=== PATIENT | male | born 1990 | race Hispanic/Latino ===

== ENCOUNTER 2018-04-06 10:40 | Inpatient (IN) | payer MEDICARE, MEDICAID ==
[~2018-04-06 10:40] MED LIST: ISOVUE-370 76%-LOCM 1 ML ONE
--- NOTE | 2018-04-06 12:48 | RAD ---
PORTABLE CHEST: HISTORY: Trauma with chest injury. FINDINGS: Lung solis are clear. Cardiomediastinum appears normal. The osseous structures appear intact. IMPRESSION: No acute abnormality identified. POS: [facility]
[2018-04-06 13:21] LABS: #Lymphocytes 0.4 thou/uL (1.20-3.40); #Monocytes 0.4 thou/uL (0.11-0.59); #Neutrophils 10.4 thou/uL (1.40-6.50); %Lymphocytes 3.3 % (21.0-51.0); %Monocytes 3.8 % (0.0-10.0); %Neutrophils 92.9 % (42.0-75.0); Hemoglobin 14.7 g/dL (14.0-18.0); Mean Corpuscular HGB CONC 35.7 g/dL (32.0-36.0); Mean Corpuscular Hemoglobin 28.9 pg (27.0-31.0); Mean Corpuscular Volume 80.9 fL (78.0-98.0); Mean Platelet Volume 6.6 fL (7.4-10.4); Platelet Count 259 thou/uL (130-400); RBC Distribution Width 11.2 % (11.5-14.5); White Blood Cell (WBC) Count 11.2 thou/uL (4.8-10.8)
[2018-04-06 13:43] LABS: ALT (SGPT) 280 U/L (8-55); AST (SGOT) 500 U/L (5-34); Albumin 4.9 g/dL (3.5-5.0); Alkaline Phosphatase 190 U/L (40-150); Anion Gap 16 mmol/L (10-20); BUN (Urea Nitrogen) 13 mg/dL (8.9-20.6); Bilirubin, Total 2.9 mg/dL (0.2-1.2); Calc. Creatinine Clearance 0 mL/min (70-130); Carbon Dioxide 22 mmol/L (22-29); Chloride 101 mmol/L (98-107); Estimated GFR-MDRD Greater than 90; Globulin 3.3 g/dL (2.4-3.5); Glucose 126 mg/dL (70-105); Lipase Less than 4 U/L (8-78); Potassium 3.5 mmol/L (3.5-5.1); Protein, Total 8.2 g/dL (6.0-8.3); Sodium 135 mmol/L (136-145)
[2018-04-06] MEDS ORDERED: Morphine 2 MG/ML SYRINGE ONE ×2 (14:15→18:22)
[2018-04-06] MEDS ORDERED: Ondansetron PF 4 MG/2 ML Vial ONE (14:15)
[2018-04-06 14:17] LABS: Acetaminophen Less than 6.0 mcg/mL (10.0-30.0); Alcohol Less than 10 mg/dL (Less than 10); Salicylate Less than 8.0 mg/dL (15.0-30.0)
--- NOTE | 2018-04-06 15:34 | CT ---
CT ABDOMEN AND PELVIS WITH CONTRAST: HISTORY: Right-sided pain. Injury 1 week ago. COMPARISON: None. FINDINGS: Lung bases are clear. No pericardial effusion. There is small layering fluid in the subhepatic space. There is dilatation of the gallbladder. The appendix is visualized and is normal. There are no dilated loops of large or small bowel. There is small volume perihepatic fluid extendin g along the lateral margin of the liver. There is small layering fluid surrounding the right portal vein and the ainsley hepatis. Rib shadowing artifact limits evaluation for small peripheral contusion or laceration, although no he patic laceration is definitively identified. No evidence for a renal laceration. The adrenal gland is unremarkable. The aortoiliac contour is within normal limits. Spleen is unremarkable. No displaced visualized right-sided rib fracture. The lumbar transverse processes are intact. The visualized skeleton is intact. IMPRESSION: 1. Mild right perihepatic and subhepatic fluid without definite hepatic laceration may be sequelae o f a recent contusion. No displaced right-sided rib fracture. 2. Mild distention of the gallbladder. Recommend correlation with liver function tests. 3. Small layering fluid in the ainsley hepatis and surrounding the right portal vein may be sequelae o f recent hepatic contusion. There is also trace fluid along the right paracolic gutter. 4. Intact appendix. 5. No evidence of splenic, pancreatic, nor renal contusions or lacerations. POS: [facility]
--- NOTE | 2018-04-06 16:12 | ULT ---
ULTRASOUND ABDOMEN LIMITED: (RIGHT UPPER QUADRANT) 04/06/2018 HISTORY: Right upper quadrant abdominal pain and nausea in a 27-year-old male. FINDINGS: Gallbladder: Multiple tiny gallstones, on the order of 1 or 2 mm in size each, mobile. Distended ray men. Wall thickness within normal limits, 2 mm. No pericholecystic edema. Small amount of sludge. Common duct: 5 mm. Liver: Normal size and echogenicity. Pancreas: Completely obscured by shadowing from bowel gas. Right kidney: No hydronephrosis. IMPRESSION: Positive for cholelithiasis within a distended gallbladder. INEZ Lynn POS: [facility]
[2018-04-06] MEDS ORDERED: Senokot S 8.6-50 MG TAB PO PRN (17:47)
[2018-04-06] MEDS ORDERED: Promethazine HCl 25 MG/ML VIAL IM/IV PRN (17:51)
--- NOTE | 2018-04-06 18:20 | HP ---
PRIMARY CARE PROVIDER: None. CHIEF COMPLAINT: Chest pain. HISTORY OF PRESENT ILLNESS: Mr. Anguiano is a pleasant 27-year-old gentleman, who was seen at [facility] on 04/06/2018. He is able to provide some history. Collateral history was also obtained from his mother by the bedside, discussion with the emergency room physician and re view of medical records. Mr. Martínez reportedly had abdominal pain one month ago and it resolved. Last 2 days, he has not be en eating much. He was in a bad mood, according to his mother. He felt warm to touch at home. He s tarted having nausea and vomiting last night, he had the symptoms today morning as well. He also rep orts that he has been having pain over the right lower chest, sharp, 8/10 at its worst and nonradiati ng. He cannot recall any aggravating or relieving factors. He reportedly fell twice in the rain one week ago. According to his mother, he also lost a lot of weight over the last 6 months, maybe 50-70 pounds. REVIEW OF SYSTEMS: All other systems reviewed and found to be negative. PAST MEDICAL HISTORY: Hypertension, pancreatitis. PAST SURGICAL HISTORY: None. PSYCHIATRIC HISTORY: Anxiety, bipolar disorder, depression, schizophrenia. SOCIAL HISTORY: Patient drinks alcohol occasionally. He uses cocaine, marijuana, and amphetamines. He smokes 1 pack of cigarettes a day. FAMILY HISTORY: No family history of premature coronary artery disease. ALLERGIES: PENICILLIN. CURRENT MEDICATIONS: Haldol, Zoloft 50 mg daily, Seroquel 100 mg at bedtime and hydroxyzine 50 mg 3 times a day. PHYSICAL EXAMINATION: GENERAL: On examination, Mr. Anguiano is awake and alert, not in acute distress. VITAL SIGNS: Blood pressure is 124/89, pulse 102, respiratory rate 20, and oxygen saturation 98% on room air. T-max in the emergency room is 100.2 degrees Fahrenheit. EYES: He has scleral icterus, no conjunctival pallor. ENT: Dry mucosal membranes, no oropharyngeal erythema or exudates. NECK: Supple, nontender. Trachea is midline. RESPIRATORY: Accessory muscles of breathing are not active. Chest wall movements are symmetric bila terally. LUNGS: Clear to auscultation, without wheeze, rhonchi or crepitations. CARDIOVASCULAR: S1 and S2 are heard, regular. Peripheral pulses palpable. No carotid bruit, no per icardial rub. ABDOMEN: Mild right upper quadrant tenderness, no guarding or rigidity, Riso sign is negative, bow el sounds are heard, no hepatomegaly, no splenomegaly. MUSCULOSKELETAL: Power is 5/5 in all 4 extremities. SKIN: No rashes or subcutaneous nodules. LYMPHATIC: No cervical lymphadenopathy. PSYCHIATRIC: Normal mood, normal affect, patient is oriented to person and place, not to time. IMAGING DATA AND LABORATORY DATA: Mr. Anguiano's labs and investigations were reviewed. He had emmanuel st x-ray, which did not show any pulmonary infiltrates. He also had CT scan of the abdomen and pelvi s, which showed mild right perihepatic and subhepatic fluid without definite hepatic laceration, may be sequelae of contusion. There is no displaced right-sided rib fracture. He had mild distention of the gallbladder. He had small layering fluid in the ainsley hepatis and surrounding the right portal vein, may be sequelae of recent hepatic contusion. He also has trace fluid along the right paracolic gutter. The appendix is intact. No evidence of splenic, pancreatic or renal contusions or lacerati ons. He had abdominal ultrasound, which showed cholelithiasis within a distended gallbladder. Commo n bile duct was 5 mm. He has leukocytosis with 11,200 white cells, of which 92.9% are neutrophils, n ormal hemoglobin, normal platelet count, decreased sodium of 135, lipase less than 4, normal creatini ne, normal lactic acid, elevated total bilirubin of 2.9, elevated AST of 500, elevated ALT of 280 and elevated alkaline phosphatase of 190. ASSESSMENT AND PLAN: Mr. Anguiano is a pleasant 27-year-old gentleman, who was seen at [facility] on 04/06/2018. His problem list includes: 1. Sepsis: Mr. Anguiano is presenting with sepsis, most likely source of infection in the biliary tree. Given his allergies, he has been started on levofloxacin and metronidazole, which I will ten nue. We will await blood cultures. 2. Abnormal liver function tests: Differential is wild, includes obstruction from gallstones versus infection in the biliary tree versus other etiologies. We will consult GI Service for opinion and h elp with management. We will recheck LFTs. 3. Tobacco abuse: Patient has been counseled regarding tobacco cessation, we will start patient on nicotine replacement therapy. 4. Polysubstance abuse: We will check urine drug screen. The patient has been counseled regarding cessation of recreational drugs. LEVEL OF RISK: Moderate. LEVEL OF COMPLEXITY: Moderate.
[2018-04-06 20:10] VITALS: BMI 26.5
[2018-04-06] MEDS: Sodium Chloride 0.9% 1,000 ML IV SCH (20:40)
[2018-04-06] MEDS: metroNIDAZOLE 500 MG in Premix Bag 1 BAG IVPB SCH (20:40)
[2018-04-06] MEDS: Morphine 2 MG/ML SYRINGE SLOW IVP PRN (20:40)
[2018-04-06] MEDS: Nicotine 21 MG PATCH TD SCH (21:55)
[2018-04-07] MEDS: Morphine 2 MG/ML SYRINGE SLOW IVP PRN ×4 (00:49→17:54)
[2018-04-07] MEDS: Sodium Chloride 0.9% 1,000 ML IV SCH ×3 (05:01→20:55)
[2018-04-07 05:56] LABS: #Lymphocytes 0.7 thou/uL (1.20-3.40); #Monocytes 0.6 thou/uL (0.11-0.59); #Neutrophils 10.9 thou/uL (1.40-6.50); %Basophils 0.2 % (0.0-1.0); %Eosinophils 0.4 % (0.0-10.0); %Lymphocytes 5.8 % (21.0-51.0); %Monocytes 4.7 % (0.0-10.0); Hemoglobin 12.3 g/dL (14.0-18.0); Mean Corpuscular HGB CONC 34.9 g/dL (32.0-36.0); Mean Corpuscular Hemoglobin 28.5 pg (27.0-31.0); Mean Corpuscular Volume 81.7 fL (78.0-98.0); Mean Platelet Volume 6.9 fL (7.4-10.4); Platelet Count 201 thou/uL (130-400); RBC Distribution Width 11.2 % (11.5-14.5); Red Blood Cell (RBC) Count 4.31 mill/uL (4.70-6.10); White Blood Cell (WBC) Count 12.3 thou/uL (4.8-10.8)
[2018-04-07 06:19] LABS: ALT (SGPT) 194 U/L (8-55); AST (SGOT) 139 U/L (5-34); Albumin 3.8 g/dL (3.5-5.0); Alkaline Phosphatase 178 U/L (40-150); Anion Gap 12 mmol/L (10-20); BUN (Urea Nitrogen) 10 mg/dL (8.9-20.6); Bilirubin, Total 3.8 mg/dL (0.2-1.2); Calc. Creatinine Clearance 132 mL/min (70-130); Calcium 8.9 mg/dL (7.8-10.44); Carbon Dioxide 24 mmol/L (22-29); Chloride 103 mmol/L (98-107); Estimated GFR-MDRD Greater than 90; Globulin 2.6 g/dL (2.4-3.5); Glucose 93 mg/dL (70-105); Potassium 3.4 mmol/L (3.5-5.1); Protein, Total 6.4 g/dL (6.0-8.3); Sodium 136 mmol/L (136-145)
[2018-04-07] MEDS: metroNIDAZOLE 500 MG in Premix Bag 1 BAG IVPB SCH ×3 (06:20→20:45)
[2018-04-07] MEDS: Enoxaparin Sodium 40 MG/0.4 ML SYRINGE SC SCH (08:11)
[2018-04-07] MEDS ORDERED: Potassium Chloride 20 MEQ TAB PO SCH (11:30)
[2018-04-07] MEDS ORDERED: Acetaminophen 500 MG TAB PO PRN (13:46)
[2018-04-07] MEDS: hydrOXYzine 25 MG TAB PO SCH ×2 (16:53→20:47)
--- NOTE | 2018-04-07 17:23 | PRG ---
DATE OF SERVICE: 04/07/2018 SUBJECTIVE: The patient is seen and examined at bedside. He is still complaining about right upper quadrant pain of the abdomen. No nausea, no vomiting, no diarrhea. OBJECTIVE: VITAL SIGNS: Blood pressure is 118/75, pulse is 110, temperature is 98.7, respirations 16, O2 satura tion is 93 on room air. HEAD: Atraumatic, normocephalic. GENERAL: He is somewhat agitated during my visit. He finally agreed to have MRCP done, ordered by Jihan HEATHENT: His head is atraumatic, normocephalic. Eyes are PERRLA. Sclerae are nonicteric. Oral mucos a is moist. NECK: Supple. LUNGS: Clear. HEART: S1, S2 normal. No S3, no S4, no murmur. ABDOMEN: Soft, although somewhat tender in the right upper quadrant. Liver is slightly enlarged, ap proximately 2 cm below the right costal margin. Bowel sounds are present. No organomegaly. EXTREMITIES: No clubbing, cyanosis, or edema. NEUROLOGIC: He is able to answer all my questions. He follows my commands. He moves his all 4 extr emities. LABORATORY DATA: White count of 12.3, hemoglobin of 12.3, hematocrit is 35.2, platelet count is 201, 000. Chemistry showed sodium of 136, potassium 3.4, chloride 103, CO2 of 24, BUN 12, creatinine 0.77 , total bilirubin 3.8, AST 139, ALT 194, and alkaline phosphatase 178,000. Microbiology: Blood cult ures x2 negative. IMPRESSION: 1. Elevated liver function test with abdominal pain and some evidence of a biliary tree obstruction. The patient finally agreed to have MRCP done. 2. Schizophrenia. We will restart his home meds. 3. Depression. PLAN: As mentioned above, additional testing on his abdomen, and based on the findings, further eval uation/treatment. For now, we will continue his metronidazole and levofloxacin; and start him on his hydroxyzine, Seroquel, and Zoloft.
--- NOTE | 2018-04-07 18:50 | MRI ---
ABDOMEN MRI WITHOUT CONTRAST: 04/07/18 HISTORY: Evaluate for possible choledocholithiasis. COMPARISON: None. TECHNIQUE: Noncontrast abdomen MRI is performed with multisequential, multiplanar imaging. FINDINGS: There is evidence of perihepatic fluid. Gallbladder is distended. There is evidence of gallstones. Th ere is edema and fluid in the gallbladder fossa. There is concern for possible cholecystitis. Spleen, pancreas, and kidneys have appropriate signal intensity. Unremarkable gallbladder. Small bilateral pleural effusion may be present. Bilateral lower lobe opacification likely due to ate lectasis. MRCP demonstrates appropriate signal in the intra and extrahepatic biliary system. There is no defini te evidence of a choledocholith. There is a linear filling defect in the distal common bile duct, not ed on the source images as well as the MIP images which is of uncertain significance. There is no ass ociated obstruction. Gallbladder is distended and multiple filling defects are noted compatible with gallstones. IMPRESSION: Cholecystitis. General surgical consultation is recommended. Results of the study discussed with Shruthi, patient's nurse, 04/07/18 at 4:38 p.m. Code CR POS: [facility]
[2018-04-07] MEDS: Nicotine 21 MG PATCH TD SCH (20:54)
--- NOTE | 2018-04-07 21:09 | CON ---
DATE OF CONSULTATION: 04/07/2018 REASON FOR CONSULTATION: Elevated LFTs, possible choledocholithiasis. CONSULTING PHYSICIAN: Dr. Petey Jimenez. HISTORY OF PRESENT ILLNESS: The patient is a 27-year-old male with past medical history of hypertens ion, pancreatitis, anxiety, bipolar disorder, and schizophrenia who is presenting with complaints of abdominal pain. He states that he was in his usual state of health until approximately 1 week ago wh en he began to experience increase right upper quadrant abdominal pain. The pain was characterized a s a pressure type sensation, was intermittent, nonradiating and would reach a severity of 8/10. Ther e was no clear exacerbating factors and only better with pain medications during this admission. He also endorses the loss of approximately 50-60 pounds over the last 6 months, but with relatively unkn own etiology and no change in dietary habits during that time. Of note, both the patient and his mot her also endorse an injury approximately 1 week ago with the patient slipped and fell and either fell on bricks or fell on the car with injury to the right side, but per patient, it sounds as though he felt on outstretched hands rather than injury to the right lower ribs or the right abdomen as well. With the patient's admission to the hospital and administration of pain medications, he now endorses no pain in the right upper quadrant and currently denies any nausea, vomiting, fevers, chills, abdomi nal pain, GI bleeding, dysphagia, odynophagia, diarrhea or constipation. Of note, upon talking with the patient's mother, it is unclear who has medical power of divorce attorney for this patient with the mother not making healthcare decisions for this patient; however, it sounds as though someone within [facility] may have access to documentation regarding this particular subject. Attem pts by nursing staff to obtain documentation were unsuccessful on the weekend. REVIEW OF SYSTEMS: A 10-category review of systems was obtained with all responses negative except f or the pertinent positives as listed in the HPI. PAST MEDICAL HISTORY: As per HPI. PAST SURGICAL HISTORY: None. FAMILY HISTORY: Denies any GI malignancies. SOCIAL HISTORY: Smokes approximately 1 pack of cigarettes per day with occasional alcohol use. He d oes endorse the use of cocaine, marijuana, and amphetamines in the past with most recent use of marij uana being approximately 6 months ago. OUTPATIENT MEDICATIONS: Reviewed. ALLERGIES: PENICILLIN. PHYSICAL EXAMINATION: VITAL SIGNS: Temperature 98.7, pulse 110, blood pressure 121/73, respiratory rate 16, satting 93% on room air. GENERAL: The patient is lying in bed in no acute distress. Alert and oriented x4. NECK: Supple. No JVD or scleral icterus noted. CARDIOVASCULAR: Tachycardic rate, but regular rhythm. No discernible murmurs, gallops or rubs. RESPIRATORY: Clear to auscultation bilaterally with no discernible wheezes or rales. ABDOMEN: Normoactive bowel sounds, soft, nondistended. Tenderness to palpation in the midepigastric and right upper quadrant. EXTREMITIES: No cyanosis, clubbing or edema. LABORATORY DATA: CBC with a white blood cell count of 12.3, hemoglobin 12.3, hematocrit 35.2, platel ets 201. Chemistry with sodium of 136, potassium 3.4, chloride 103, CO2 24, BUN 10, creatinine 0.77, glucose 93, AST 139, ALT 194, alkaline phosphatase 178, total bilirubin 3.8, lipase less than 4. IMAGING DATA: The patient had a CT of the abdomen and pelvis obtained on 04/06/2018 which showed dil ation of the gallbladder along with small volume perihepatic fluid along the lateral margin of the li anthony. Right upper quadrant ultrasound was also obtained on 04/06/2018 with multiple tiny gallstones a nd normal gallbladder wall thickness. No pericholecystic fluid and a common bile duct measuring 5 mm in size. However, given his elevated LFTs and concern for choledocholithiasis, an abdominal MRI was obtained on 04/07/2018 which showed a significant amount of pericholecystic fluid with no discernibl e filling defects or stones within the common bile duct. ASSESSMENT AND PLAN: The patient is a 27-year-old male with past medical history of hypertension, pa ncreatitis, anxiety, bipolar disorder and schizophrenia, presenting with elevated LFTs and imaging co nsistent with cholecystitis. CHOLECYSTITIS: The patient is presenting with acute onset of increased right upper quadrant abdomina l pain that has been present for the last week, characterized as a pressure type sensation that is in termittent. It would reach a severity of approximately 8/10. Upon admission to the [facility], he was noted to have significantly elevated LFTs in an obstructive type pattern concerning for c holedocholithiasis. However, he now has a CT scan and MRI consistent with the diagnosis of acute cho lecystitis with lack of evidence supporting a diagnosis of choledocholithiasis. RECOMMENDATIONS: 1. We will continue to trend LFTs daily for evaluation of increased inflammation/decompensation. 2. Agree with placing the patient on broad spectrum antibiotics including levofloxacin and metronida zole as part of treatment for cholecystitis. 3. We would consult General Surgery Service for evaluation of the patient and possible cholecystecto my during this admission. 4. Would have case management evaluate this patient and determine medical power of divorce attorney. Given lack of presence of choledocholithiasis, we will sign off at this time. Please call with any a dditional questions.
[2018-04-08] MEDS: Morphine 2 MG/ML SYRINGE SLOW IVP PRN ×2 (01:45→12:10)
[2018-04-08] MEDS: metroNIDAZOLE 500 MG in Premix Bag 1 BAG IVPB SCH ×3 (05:40→21:38)
[2018-04-08 06:30] LABS: Amphetamine Not Detected (NotDetected); Barbiturates Screen Not Detected (NotDetected); Benzodiazepine Screen Not Detected (NotDetected); Cocaine Metabolite Screen Detected (NotDetected); Medtox Control Line Valid? VALID (VALID); Medtox Reader # READER 1; Methadone Not Detected (NotDetected); Methamphetamine Not Detected (NotDetected); Opiate Screen Detected (NotDetected); Oxycodone Screen Not Detected (NotDetected); Phencyclidine (PCP) Not Detected (NotDetected); THC/Cannabinoid Screen Not Detected (NotDetected); Tricyclic Screen Not Detected (NotDetected)
--- NOTE | 2018-04-08 09:01 | PRG ---
DATE OF SERVICE: 04/08/2018 SUBJECTIVE: The patient is seen and examined at bedside. He is complaining about abdominal pain. H e did not have any vomiting. OBJECTIVE: VITAL SIGNS: Blood pressure is 106/66, pulse is 104, temperature is 98.6, respiratory rate is 18, O2 saturation is 93% on room air. HEENT: Head is atraumatic and normocephalic. Eyes: PERRLA. Sclerae is nonicteric. Oral mucosa is somewhat dry. NECK: Supple, no lymphadenopathy. Thyroid is not palpable. LUNGS: Clear. HEART: S1 and S2 normal. No S3, no S4. HEART: Slightly tachycardic. ABDOMEN: Tender in the right upper quadrant. There is some guarding. Bowel sounds are present. EXTREMITIES: No clubbing, cyanosis or edema. NEUROLOGIC: He is alert and oriented x4. There is not any motor deficits. Cranial nerves are intac t. LABORATORY DATA: Labs not done since the patient refused any labs this morning. IMAGING DATA: Abdomen MRI showed gallstones in the gallbladder, distended gallbladder and perihepati c fluid. There is edema and fluid in the gallbladder fossa and there is a concern for possible terri cystitis. IMPRESSION: 1. Abdominal pain with suspicious findings for acute cholecystitis. General Surgery is consulted. Dr. Koenig will see the patient. 2. Schizophrenia. He is restarted on his meds since yesterday. 3. Depression, stable. PLAN: As mentioned above general surgery consult. Continue current regimen. He is on two antibioti cs, metronidazole and levofloxacin. We will continue both of them. We will continue his Seroquel, A tarax, and Zoloft. We will continue IV fluids.
[2018-04-08] MEDS ORDERED: Ketorolac Tromethamine 30 MG/ML VIAL ONE (11:33)
[2018-04-08] MEDS ORDERED: Ondansetron PF 4 MG/2 ML Vial ONE (11:33)
[2018-04-08] MEDS ORDERED: Dexamethasone 20 MG/5 ML VIAL ONE (11:33)
[2018-04-08] MEDS ORDERED: Lidocaine 1% PF 5 ML VIAL ONE (11:33)
[2018-04-08] MEDS ORDERED: PROPOFOL 200 MG/20 ML VIAL ONE (11:33)
[2018-04-08] MEDS ORDERED: Glycopyrrolate 0.2 MG/ML 5 ML SYRINGE ONE (11:33)
[2018-04-08 12:08] LABS: #Eosinphils 0.1 thou/uL (0.0-0.7); #Lymphocytes 0.7 thou/uL (1.20-3.40); #Monocytes 0.7 thou/uL (0.11-0.59); #Neutrophils 13.2 thou/uL (1.40-6.50); %Basophils 0.2 % (0.0-1.0); %Eosinophils 0.4 % (0.0-10.0); %Lymphocytes 4.9 % (21.0-51.0); %Monocytes 4.4 % (0.0-10.0); %Neutrophils 90.2 % (42.0-75.0); Hemoglobin 11.7 g/dL (14.0-18.0); Mean Corpuscular HGB CONC 34.1 g/dL (32.0-36.0); Mean Corpuscular Hemoglobin 28.4 pg (27.0-31.0); Mean Corpuscular Volume 83.2 fL (78.0-98.0); Mean Platelet Volume 6.6 fL (7.4-10.4); Platelet Count 195 thou/uL (130-400); RBC Distribution Width 11.2 % (11.5-14.5); Red Blood Cell (RBC) Count 4.12 mill/uL (4.70-6.10); White Blood Cell (WBC) Count 14.7 thou/uL (4.8-10.8)
[2018-04-08 12:35] LABS: ALT (SGPT) 101 U/L (8-55); AST (SGOT) 30 U/L (5-34); Albumin 3.6 g/dL (3.5-5.0); Alkaline Phosphatase 154 U/L (40-150); Anion Gap 16 mmol/L (10-20); BUN (Urea Nitrogen) 7 mg/dL (8.9-20.6); Bilirubin, Total 1.7 mg/dL (0.2-1.2); Calc. Creatinine Clearance 124 mL/min (70-130); Carbon Dioxide 15 mmol/L (22-29); Chloride 106 mmol/L (98-107); Estimated GFR-MDRD Greater than 90; Glucose 73 mg/dL (70-105); Potassium 3.7 mmol/L (3.5-5.1); Protein, Total 6.6 g/dL (6.0-8.3); Sodium 133 mmol/L (136-145)
--- NOTE | 2018-04-08 13:31 | CON ---
DATE OF CONSULTATION: 04/08/2018 CHIEF COMPLAINT: Upper abdominal pain. HISTORY OF PRESENT ILLNESS This is a 27-year-old male, who presents with a history of upper abdomina l pain over the last few days, stopped eating, nausea and vomiting when he came in, and found to have elevated liver function tests, including bilirubin. Dr. Moscoso saw him and did an MRCP, which showed no obvious common bile duct obstruction. There are cholecystitis-type changes though. The patient is feeling better today. He does not understand why he needs his gallbladder out. PAST MEDICAL HISTORY: Hypertension, pancreatitis, bipolar with schizophrenia. PAST SURGICAL HISTORY: He denies. SOCIAL HISTORY: He drinks occasionally, but he uses cocaine, marijuana, and amphetamines. He also s mokes 1 pack a day. ALLERGIES: PENICILLIN. MEDICINES: Haldol, Zoloft, Seroquel, hydroxyzine. REVIEW OF SYSTEMS: Ten-system review of systems is otherwise negative. PHYSICAL EXAMINATION: VITAL SIGNS: Blood pressure is 109/63, pulse 111, respirations 18, temperature 100.0. HEENT: Sclerae are anicteric. Oropharynx clear. NECK: No lymphadenopathy. CHEST: Clear. HEART: Regular rate and rhythm. ABDOMEN: Soft, tender upper abdomen. EXTREMITIES: No ischemia or edema to extremities. LABORATORY DATA: Sodium 133, potassium 3.7, creatinine is 0.82. His bilirubin is down to 1.7. Lipa se was normal on 04/06/2018. MRCP shows gallstones, cholecystitis. ASSESSMENT: Acute cholecystitis, elevated liver tests. PLAN: Laparoscopic cholecystectomy with cholangiogram. Risks, benefits, alternatives. He gives con sent. We will do this today.
[2018-04-08] MEDS ORDERED: Midazolam HCl 2 mg/2 ml Vial ONE (15:29)
[2018-04-08] MEDS ORDERED: Iothalamate Meglumine 60% 50 ML VIAL FS ONE (15:45)
[2018-04-08] MEDS ORDERED: Bupivacaine/Epinephrine 0.25% 30 ML VIAL ONE (15:45)
[2018-04-08] MEDS ORDERED: Levofloxacin 500 mg/D5W 100 ml Premix Bag ONE (16:05)
[2018-04-08] MEDS ORDERED: Fentanyl 100 MCG/2 ML VIAL ONE (16:10)
[2018-04-08] MEDS ORDERED: HYDROmorphone 2 MG/ML VIAL ONE (16:10)
[2018-04-08] MEDS ORDERED: HYDROmorphone 2 MG/ML VIAL SLOW IVP PRN (17:11)
[2018-04-08] MEDS ORDERED: Promethazine HCl 25 MG/ML VIAL IM PRN ×2 (17:11→18:04)
[2018-04-08] MEDS ORDERED: PACU-Morphine 4MG/ML VIAL SLOW IVP PRN (17:11)
[2018-04-08] MEDS ORDERED: Promethazine HCl 25 MG/ML VIAL SLOW IVP PRN (17:11)
[2018-04-08] MEDS ORDERED: Ondansetron HCl/PF 4 MG/2 ML Vial IVP PRN (17:11)
[2018-04-08] MEDS ORDERED: traMADol HCl 50 MG TAB PO PRN (18:04)
[2018-04-08] MEDS ORDERED: HYDROcodone/Acetaminophen 10/325 mg Tablet PO PRN (18:04)
[2018-04-08] MEDS ORDERED: Ondansetron PF 4 MG/2 ML Vial IVP PRN (18:04)
[2018-04-08] MEDS ORDERED: Mag-Al 1200 mg/1200 mg/30 ML UDCUP PO PRN (18:04)
[2018-04-08] MEDS ORDERED: Calcium Carbonate 500 MG ChewTAB PO PRN (18:04)
[2018-04-08] MEDS ORDERED: Dextrose 5% in Water 1,000 ML IV PRN (18:04)
[2018-04-08] MEDS ORDERED: hydrALAZINE 20 MG/ML VIAL SLOW IVP PRN (18:04)
[2018-04-08] MEDS ORDERED: Dextrose 50% Abboject 50 ML SYRINGE SLOW IVP PRN (18:04)
[2018-04-08] MEDS: hydrOXYzine 25 MG TAB PO SCH ×2 (19:46→20:35)
[2018-04-08] MEDS: Enoxaparin Sodium 40 MG/0.4 ML SYRINGE SC SCH (19:47)
[2018-04-08] MEDS: Sodium Chloride 0.9% 1,000 ML IV SCH ×2 (19:50→20:34)
[2018-04-08] MEDS: Famotidine 20 MG TAB PO SCH (20:34)
[2018-04-08] MEDS: Nicotine 21 MG PATCH TD SCH (20:35)
[2018-04-08] MEDS: Famotidine/PF 20 mg/2ml Vial SLOW IVP SCH (20:35)
[2018-04-08] MEDS: Morphine 4 MG/ML VIAL SLOW IVP PRN (22:43)
--- NOTE | 2018-04-09 00:55 | OP ---
DATE OF SERVICE: 04/08/2018 PREOPERATIVE DIAGNOSES: Acute cholecystitis, elevated liver tests. POSTOPERATIVE DIAGNOSES: Acute cholecystitis, elevated liver tests, choledocholithiasis, multiple. PROCEDURE: Laparoscopic cholecystectomy with intraoperative cholangiogram and placement of temporary abdominal drain. SURGEON: Samuel Koenig M.D. ANESTHESIA: Minimal. COMPLICATIONS: None. FINDINGS: Multiple gallstones in common bile duct on cholangiogram. TECHNIQUE: The patient was taken to the operating room and placed on supine table. After general an esthetic was obtained, the abdomen is prepped and draped in sterile fashion. Curved incision made be low the umbilicus. Cautery was used to dissect down to and score the fascia. Abdominal cavity enter ed bluntly using a Felicia clamp. Holding stitch of PDS placed on each side of the fascia. Rodriguez tro car was placed. High-flow pneumoperitoneum was obtained. An upper midline 5 mm port and 2 right upp er quadrant 5 mm ports were placed under direct visualization. The peritoneum of the gallbladder is opened. There was significant inflammatory reaction in the area of the gallbladder. The omentum was stuck over the top. This was bluntly and meticulously dissected off. The base of the gallbladder, the cystic duct and cystic artery were delineated. Two clips were placed proximally on the cystic ar elizabeth and one distally, and cut using laparoscopic scissors. A small ductotomy was made and a cholang iocatheter was brought in through a separate stab incision and a cholangiogram was performed, shows m ultiple filling defects in the common bile duct, minimal contrast into the duodenum. Cholangiocathet er was removed. Two clips and an Endoloop were used to close the cystic duct proximally. Gallbladde r dissected out of the gallbladder fossa and placed in an Endo catch bag and brought out through the Rodriguez. The right upper quadrant was irrigated. A 19 round drain brought through the right upper qu adrant incision and left in the liver bed, sewn in place using a silk. All port sites were infiltrat ed using local anesthetic and removed under direct visualization and pneumoperitoneum was let down. PDS was used to close the fascial defect below the umbilicus. All incisions were irrigated and close d using 4-0 Monocryl and Dermabond. The patient was en route to recovery in stable condition. All i nstrument counts, needle counts, lap counts are correct. The patient will need post op ERCP.
[2018-04-09] MEDS: metroNIDAZOLE 500 MG in Premix Bag 1 BAG IVPB SCH ×3 (05:50→22:11)
[2018-04-09 05:56] LABS: #Lymphocytes 0.4 thou/uL (1.20-3.40); #Monocytes 0.2 thou/uL (0.11-0.59); #Neutrophils 9.6 thou/uL (1.40-6.50); %Lymphocytes 3.6 % (21.0-51.0); %Monocytes 2.2 % (0.0-10.0); %Neutrophils 94.2 % (42.0-75.0); Hemoglobin 10.7 g/dL (14.0-18.0); Mean Corpuscular HGB CONC 33.3 g/dL (32.0-36.0); Mean Corpuscular Hemoglobin 27.8 pg (27.0-31.0); Mean Corpuscular Volume 83.5 fL (78.0-98.0); Mean Platelet Volume 7.2 fL (7.4-10.4); Platelet Count 198 thou/uL (130-400); RBC Distribution Width 11.4 % (11.5-14.5); Red Blood Cell (RBC) Count 3.84 mill/uL (4.70-6.10); White Blood Cell (WBC) Count 10.2 thou/uL (4.8-10.8)
[2018-04-09 06:10] LABS: ALT (SGPT) 80 U/L (8-55); AST (SGOT) 20 U/L (5-34); Albumin 3.3 g/dL (3.5-5.0); Alkaline Phosphatase 134 U/L (40-150); Anion Gap 10 mmol/L (10-20); BUN (Urea Nitrogen) 8 mg/dL (8.9-20.6); Bilirubin, Total 0.8 mg/dL (0.2-1.2); Calc. Creatinine Clearance 133 mL/min (70-130); Calcium 9.3 mg/dL (7.8-10.44); Carbon Dioxide 21 mmol/L (22-29); Chloride 110 mmol/L (98-107); Estimated GFR-MDRD Greater than 90; Globulin 3.2 g/dL (2.4-3.5); Glucose 139 mg/dL (70-105); Protein, Total 6.5 g/dL (6.0-8.3); Sodium 137 mmol/L (136-145)
[2018-04-09] MEDS: Sodium Chloride 0.9% 1,000 ML IV SCH ×3 (07:07→23:57)
--- NOTE | 2018-04-09 08:12 | PRG ---
DATE OF SERVICE: 04/09/2018 Mr. Anguiano states he feels better this morning than he did yesterday before surgery. He has been afebrile overnight. PHYSICAL EXAMINATION: VITAL SIGNS: Stable. ABDOMEN: Soft. His drain is serosanguineous. Liver function tests are now normal. ASSESSMENT: Postop day #1 laparoscopic cholecystectomy with cholangiogram with cholangiogram showing multiple filling defects in the common bile duct and minimal contrast flow into the duodenum. PLAN: Dr. Moscoso to see for ERCP today, likely home tomorrow.
[2018-04-09] MEDS ORDERED: Iothalamate Meglumine 60% 50 ML VIAL FS ONE (09:55)
[2018-04-09] MEDS ORDERED: Indomethacin 50 MG SUPP ONE ×2 (09:55→09:56)
--- NOTE | 2018-04-09 09:58 | RAD ---
OPERATIVE CHOLANGIOGRAM: HISTORY: Intraoperative film. There are 2 images presented for interpretation. These show multiple filling defects within the dist al common bile duct. IMPRESSION: Multiple filling defects within a nondilated common bile duct. There is no emptying into the duodenu m on this exam. POS: [facility]
[2018-04-09] MEDS ORDERED: Fentanyl 100 MCG/2 ML VIAL ONE (09:59)
[2018-04-09] MEDS ORDERED: Indomethacin 50 MG SUPP PR SCH (10:00)
[2018-04-09] MEDS ORDERED: Midazolam HCl 2 mg/2 ml Vial ONE (10:10)
[2018-04-09] MEDS ORDERED: Ondansetron HCl/PF 4 MG/2 ML Vial IVP PRN (11:33)
[2018-04-09] MEDS ORDERED: Promethazine HCl 25 MG/ML VIAL IM PRN (11:33)
[2018-04-09] MEDS ORDERED: HYDROmorphone 2 MG/ML VIAL SLOW IVP PRN (11:33)
[2018-04-09] MEDS ORDERED: Promethazine HCl 25 MG/ML VIAL SLOW IVP PRN (11:33)
--- NOTE | 2018-04-09 12:45 | OP ---
DATE OF PROCEDURE: 04/09/2018 PROCEDURE: ERCP with sphincterotomy and stone extraction. INDICATION FOR PROCEDURE: Choledocholithiasis, intraoperative cholangiogram showing multiple filling defects in the common bile duct. DESCRIPTION OF PROCEDURE: After the risks and benefits of the procedure were explained to the patient including risk of bleeding, infection, perforation, reactions to anesthesia, aspiration, pancreatitis, and/or pain, informed consent was obtained. The patient was then taken to the endoscopy suite where general anesthesia and endotracheal tube intubation was performed. Once the patient was sedated and intubated, he was maneuvered into the supine position in preparation for the procedure. Once in adequate position, the standard duodenoscope was introduced into the mouth with intubation of the esophagus, stomach, and proximal small intestine with the findings listed below. The patient tolerated the procedure well with no immediate perioperative complications. At the conclusion of the procedure, all equipment was removed, and the patient was taken to PACU in satisfactory condition. FINDINGS: EGD: Limited views of the upper gastrointestinal mucosa were seen with the duodenoscope, but of the mucosa visualized, normal-appearing mucosa was seen in the esophagus. On gastric retroflexion in the stomach, there was increased erythema and friability of the GE junction that did exhibit some mild oozing of blood, but did not have any other associated abnormalities with it including lack of erosions, ulcerations, mass lesions. The gastric mucosa appeared normal; however, the duodenal bulb appeared dilated and somewhat mottled in appearance, but did not have any associated erosions, ulcerations, or mass lesions. ERCP FINDINGS: The ampulla was successfully found within the second portion of the duodenum and did not exhibit any abnormalities; however, upon visualization and suctioning of the surrounding area, a small 1-2 mm yellow pigmented stone was extruded from the common bile duct spontaneously. Using a 5 mm sphincterotome, the ampulla was then successfully cannulated with a cholangiogram performed at that point showing a mildly dilated common bile duct (around 7-8mm) and multiple filling defects, all along the length of the common bile duct. With successful cannulation, a guidewire was placed into the biliary tree to maintain presence within the common bile duct. A sphincterotomy was then performed without complication or significant bleeding with this maneuver. Then, using the exchange technique, the sphincterotome was exchanged for a 9-12 mm biliary balloon successfully. The balloon was then advanced into the common bile duct, and using successive sweeping of the duct at balloon size of 12 mm, numerous (approximately 6-12) yellow pigmented stones were successfully extracted from the common bile duct, measuring approximately 2 -4 mm in size. At the conclusion of the procedure, an occlusion cholangiogram was then performed, which then showed no additional filling defects. There was no evidence of biliary leak or dilation of the intrahepatic tree. All equipment was then removed and the procedure was terminated. IMPRESSION: Choledocholithiasis with successful extraction of yellow pigmented stones. RECOMMENDATIONS: 1. We will continue to trend LFTs for evaluation and treatment. 2. We would monitor patient clinically for signs of post-ERCP pancreatitis. If it exhibits increased abdominal pain within the next 12-18 hours, I would recommend obtaining a serum lipase for evaluation of possible pancreatitis. 3. We will place the patient on a clear liquid diet in anticipation of improving clinical status. 4. Defer to primary team for pain control. We will continue to follow. Please call with any questions. [facility]
[2018-04-09] MEDS ORDERED: Glycopyrrolate 0.2 MG/ML 5 ML SYRINGE ONE (13:56)
[2018-04-09] MEDS ORDERED: Ondansetron PF 4 MG/2 ML Vial ONE (13:56)
[2018-04-09] MEDS ORDERED: Dexamethasone 20 MG/5 ML VIAL ONE (13:56)
[2018-04-09] MEDS ORDERED: Lidocaine 1% PF 5 ML VIAL ONE (13:56)
[2018-04-09] MEDS ORDERED: PROPOFOL 200 MG/20 ML VIAL ONE (13:56)
[2018-04-09] MEDS: Famotidine 20 MG TAB PO SCH ×2 (15:01→19:59)
[2018-04-09] MEDS: Famotidine/PF 20 mg/2ml Vial SLOW IVP SCH ×2 (15:01→20:15)
[2018-04-09] MEDS: hydrOXYzine 25 MG TAB PO SCH ×3 (15:01→19:59)
[2018-04-09] MEDS: HYDROcodone/Acetaminophen 10/325 mg Tablet PO PRN ×2 (15:04→20:08)
--- NOTE | 2018-04-09 15:23 | PDOC.PN ---
- Subjective Encounter Start Date: 04/09/18 Encounter Start Time: 15:21 Mr. Nicholson was seen today in follow-up of ERCP Pancreatitis. He says he feels fine. He denies any abdominal pain. He is tolerating a clear liquid diet so far. - Objective MAR Reviewed: Yes Vital Signs & Weight: Vital Signs (12 hours) Temp Pulse Resp BP Pulse Ox 04/09/18 12:28 94 L 04/09/18 07:39 97.8 F 74 16 115/75 93 L 04/09/18 04:25 98.2 F 72 18 120/81 97 Weight Weight 145 lb I&O: 04/08/18 04/09/18 04/10/18 06:59 06:59 06:59 Intake Total 2800 2780 Output Total 2700 1530 Balance 100 1250 Result Diagrams: 04/09/18 05:10 04/09/18 05:10 Phys Exam - Physical Examination HEENT: PERRLA Respiratory: no wheezing, no rales, no rhonchi, clear to auscultation bilateral Cardiovascular: RRR, no significant murmur, no rub Gastrointestinal: soft, non-tender, no distention, positive bowel sounds Musculoskeletal: no edema Dx/Plan (1) Pancreatitis, acute Code(s): K85.90 - ACUTE PANCREATITIS WITHOUT NECROSIS OR INFECTION, UNSP Status: Acute (2) Choledocholithiasis Code(s): K80.50 - CALCULUS OF BILE DUCT W/O CHOLANGITIS OR CHOLECYST W/O OBST Status: Acute (3) Schizophrenia Code(s): F20.9 - SCHIZOPHRENIA, UNSPECIFIED Status: Acute - Plan * Post ERCP Pancreatits- improved. He has been advanced to a clear liquid diet * Schizophrenia- stable
[2018-04-09] MEDS: Nicotine 21 MG PATCH TD SCH (20:15)
[2018-04-09] MEDS: Morphine 4 MG/ML VIAL SLOW IVP PRN (23:43)
[2018-04-10] MEDS: HYDROcodone/Acetaminophen 10/325 mg Tablet PO PRN ×2 (04:02→08:03)
[2018-04-10] MEDS: metroNIDAZOLE 500 MG in Premix Bag 1 BAG IVPB SCH ×2 (05:36→13:21)
[2018-04-10] MEDS: hydrOXYzine 25 MG TAB PO SCH ×2 (08:52→14:41)
[2018-04-10] MEDS: Famotidine 20 MG TAB PO SCH (08:53)
[2018-04-10] MEDS: Famotidine/PF 20 mg/2ml Vial SLOW IVP SCH (08:53)
[2018-04-10] MEDS: Sodium Chloride 0.9% 1,000 ML IV SCH (11:39)
[2018-04-10] MEDS: Morphine 4 MG/ML VIAL SLOW IVP PRN (12:39)
[2018-04-10 15:42] VITALS: BP 122/83; TEMP 97.8
--- NOTE | 2018-04-10 17:27 | PRG ---
DATE OF SERVICE: 04/10/2018 SUBJECTIVE: Mr. Nicholson is doing well today. Tolerated the liquid diet. Denies pain. ANJELICA output is serosanguinous. OBJECTIVE: VITAL SIGNS: Stable. ABDOMEN: Soft and nontender. ASSESSMENT: Status post cholecystectomy for cholecystitis, status post endoscopic retrograde cholangiopancreatography for choledocholithiasis. PLAN: Discontinue drain. Discharge home. Prescription for hydrocodone on chart. Follow up with me in 2 weeks. Job ID: [id number]
== END 2018-04-10 18:10 | disposition home or self-care (01) | DRG 853 ==
LOC: ERS 10:40 → SURG B 17:24
PROVIDERS: ADMIT Internal Medicine; ATTEND Internal Medicine
PROC: 0FT44ZZ Resection of Gallbladder, Percutaneous Endoscopic Approach (ICD-10-PCS; principal; 2018-04-08)
PROC: 0F9940Z Drainage of Common Bile Duct with Drainage Device, Percutaneous Endoscopic Approach (ICD-10-PCS; 2018-04-08)
PROC: BF101ZZ Fluoroscopy of Bile Ducts using Low Osmolar Contrast (ICD-10-PCS; 2018-04-08)
PROC: 0FC98ZZ Extirpation of Matter from Common Bile Duct, Via Natural or Artificial Opening Endoscopic (ICD-10-PCS; 2018-04-09)
DX: A41.9 Sepsis, unspecified organism (principal); K85.90 Acute pancreatitis without necrosis or infection, unspecified; K80.43 Calculus of bile duct with acute cholecystitis with obstruction; F20.9 Schizophrenia, unspecified; F32.9 Major depressive disorder, single episode, unspecified; I10 Essential (primary) hypertension; F17.210 Nicotine dependence, cigarettes, uncomplicated
CPT/HCPCS: 36415; 47532; 71045; 74177; 74181; 76000; 76705; 80053; 80306; 80307; 82140; 82550; 83605; 83690; 85025; 87040; 88304; 96361; 96365; 96375; 96376; J1100; J1170; J1650; J1885; J1956; J2001; J2250; J2270; J2405; J2550; J2704; J3010; Q9961; S0028

== ENCOUNTER 2020-07-08 13:28 | Emergency (ER) | payer MEDICARE, MEDICAID ==
--- NOTE | 2020-07-08 14:03 | RAD ---
Chest one view HISTORY: Dyspnea. COMPARISON: 04/06/2018. FINDINGS: Cardiac silhouette and pulmonary vasculature are unremarkable. Mediastinum is midline. No confluent airspace consolidation or evidence of pneumothorax. Hemostasis clips overlie the gallbladder fossa. IMPRESSION : No abnormalities are demonstrated.
[2020-07-08 14:12] LABS: #Eosinphils 0.2 thou/uL (0.0-0.7); #Lymphocytes 1.3 thou/uL (1.20-3.40); #Monocytes 0.3 thou/uL (0.11-0.59); #Neutrophils 3.7 thou/uL (1.40-6.50); %Basophils 0.3 % (0.0-1.0); %Lymphocytes 23.8 % (21.0-51.0); %Monocytes 4.9 % (0.0-10.0); Hemoglobin 12.9 g/dL (14.0-18.0); Mean Corpuscular HGB CONC 34.3 g/dL (32.0-36.0); Mean Corpuscular Hemoglobin 27.7 pg (27.0-31.0); Mean Corpuscular Volume 80.9 fL (78.0-98.0); Mean Platelet Volume 6.3 fL (7.4-10.4); Platelet Count 252 thou/uL (130-400); Red Blood Cell (RBC) Count 4.64 mill/uL (4.70-6.10); White Blood Cell (WBC) Count 5.4 thou/uL (4.8-10.8)
[2020-07-08 14:38] LABS: ALT (SGPT) 12 U/L (8-55); AST (SGOT) 17 U/L (5-34); Albumin 4.4 g/dL (3.5-5.0); Alkaline Phosphatase 93 U/L (40-110); Anion Gap 14 mmol/L (10-20); BUN (Urea Nitrogen) 18 mg/dL (8.9-20.6); Bilirubin, Total 1.1 mg/dL (0.2-1.2); Calc. Creatinine Clearance 0 mL/min (70-130); Calcium 9.4 mg/dL (7.8-10.44); Carbon Dioxide 25 mmol/L (22-29); Chloride 102 mmol/L (98-107); Globulin 3.3 g/dL (2.4-3.5); Glucose 98 mg/dL (70-105); Protein, Total 7.7 g/dL (6.0-8.3); Sodium 137 mmol/L (136-145)
== END 2020-07-08 15:48 | disposition short-term general hospital (02) ==
LOC: ERS 13:28
DX: F14.10 Cocaine abuse, uncomplicated (principal); Z71.6 Tobacco abuse counseling; F17.210 Nicotine dependence, cigarettes, uncomplicated; Z79.899 Other long term (current) drug therapy
CPT/HCPCS: 36415; 71045; 80053; 84484; 85025; 93005; 99406

== ENCOUNTER 2020-07-16 14:32 | Emergency (ER) | payer MEDICARE, MEDICAID ==
[2020-07-16 15:10] LABS: #Eosinphils 0.2 thou/uL (0.0-0.7); #Lymphocytes 1.3 thou/uL (1.20-3.40); #Monocytes 0.3 thou/uL (0.11-0.59); #Neutrophils 4.4 thou/uL (1.40-6.50); %Basophils 0.5 % (0.0-1.0); %Eosinophils 3.4 % (0.0-10.0); %Monocytes 4.4 % (0.0-10.0); %Neutrophils 70.7 % (42.0-75.0); Hemoglobin 13.7 g/dL (14.0-18.0); Mean Corpuscular Hemoglobin 28.4 pg (27.0-31.0); Mean Corpuscular Volume 83.3 fL (78.0-98.0); Mean Platelet Volume 6.7 fL (7.4-10.4); Platelet Count 241 thou/uL (130-400); RBC Distribution Width 11.3 % (11.5-14.5); Red Blood Cell (RBC) Count 4.82 mill/uL (4.70-6.10); White Blood Cell (WBC) Count 6.2 thou/uL (4.8-10.8)
[2020-07-16] MEDS ORDERED: Boostrix 0.5 ML (Tdap) VIAL ONE (15:18)
[2020-07-16 15:28] LABS: Albumin 4.6 g/dL (3.5-5.0)
[2020-07-16 15:29] LABS: Chloride 101 mmol/L (98-107); Sodium 138 mmol/L (136-145)
[2020-07-16 15:30] LABS: Calcium 9.5 mg/dL (7.8-10.44); Glucose 102 mg/dL (70-105)
[2020-07-16 15:31] LABS: Protein, Total 7.6 g/dL (6.0-8.3)
[2020-07-16 15:32] LABS: Anion Gap 14 mmol/L (10-20); Bilirubin, Total 0.9 mg/dL (0.2-1.2); Carbon Dioxide 27 mmol/L (22-29)
[2020-07-16 15:33] LABS: Alkaline Phosphatase 93 U/L (40-110)
[2020-07-16 15:34] LABS: BUN (Urea Nitrogen) 12 mg/dL (8.9-20.6); Calc. Creatinine Clearance 0 mL/min (70-130)
[2020-07-16 15:35] LABS: AST (SGOT) 15 U/L (5-34)
[2020-07-16 15:36] LABS: ALT (SGPT) 12 U/L (8-55)
[2020-07-16] MEDS ORDERED: Albuterol 200 PUFF (6.7GM INHALER) ONE (15:49)
== END 2020-07-16 15:50 | disposition home or self-care (01) ==
LOC: ERS 14:32
DX: R06.00 Dyspnea, unspecified (principal); F17.210 Nicotine dependence, cigarettes, uncomplicated
CPT/HCPCS: 36415; 71045; 80053; 85025; 90715; 93005

== ENCOUNTER 2021-05-26 01:06 | Emergency (ER) | payer MEDICARE, MEDICAID | END 2021-05-26 05:41 | disposition home or self-care (01) | LOC: ERS 01:06 | DX: F41.9 Anxiety disorder, unspecified (principal); F17.210 Nicotine dependence, cigarettes, uncomplicated; Z87.19 Personal history of other diseases of the digestive system; Z79.899 Other long term (current) drug therapy | CPT/HCPCS: 99283 ==

== ENCOUNTER 2021-07-03 13:40 | Emergency (ER) | payer MEDICARE, MEDICAID ==
[2021-07-03 14:36] LABS: Bilirubin Negative (Negative); Blood, Urine Negative (Negative); Clarity Clear (Clear); Glucose, Urine (Dipstick) Normal (Negative); Ketone, Urine Negative (Negative); Leukocyte Negative Leu/uL (Negative); Nitrite Negative (Negative); Protein, Urine (Dipstick) Negative (Neg-Trace); Specific Gravity, Urine 1.011 (1.002-1.036); Urobilinogen Normal mg/dL (Less than 2); pH, Urine 5.5 (5.0-9.0)
== END 2021-07-03 16:30 | disposition home or self-care (01) ==
LOC: ERS 13:40
DX: J02.9 Acute pharyngitis, unspecified (principal); N48.89 Other specified disorders of penis; F17.210 Nicotine dependence, cigarettes, uncomplicated; Z87.19 Personal history of other diseases of the digestive system; Z79.899 Other long term (current) drug therapy
CPT/HCPCS: 81003; 99283

== ENCOUNTER 2021-09-12 15:02 | Emergency (ER) | payer MEDICARE, MEDICAID ==
[2021-09-12 15:37] LABS: Hemoglobin 14.3 g/dL (14.0-18.0); Mean Corpuscular HGB CONC 34.2 g/dL (32.0-36.0); Mean Corpuscular Hemoglobin 30.8 pg (27.0-31.0); Mean Corpuscular Volume 90.2 fL (78.0-98.0); Mean Platelet Volume 7.3 fL (7.4-10.4); Platelet Count 243 thou/uL (130-400); RBC Distribution Width 11.2 % (11.5-14.5); Red Blood Cell (RBC) Count 4.63 mill/uL (4.70-6.10); White Blood Cell (WBC) Count 6.2 thou/uL (4.8-10.8)
[2021-09-12 15:52] LABS: Band 3 % (5-11); Eosinophils 5 % (0-10); Lymphocytes 30 % (21-51); MDiff Complete? YES; Monocytes 3 % (0-10); Neutrophil 58 % (42-75); Platelet Morphology Comment Appears Adequate; RBC Morphology Normal
[2021-09-12 16:12] LABS: ALT (SGPT) 23 U/L (8-55); AST (SGOT) 19 U/L (5-34); Albumin 4.4 g/dL (3.5-5.0); Alkaline Phosphatase 117 U/L (40-110); Anion Gap 15 mmol/L (10-20); BUN (Urea Nitrogen) 22 mg/dL (8.9-20.6); Bilirubin, Total 0.4 mg/dL (0.2-1.2); Calc. Creatinine Clearance 0 mL/min (70-130); Calcium 9.3 mg/dL (7.8-10.44); Carbon Dioxide 22 mmol/L (22-29); Chloride 107 mmol/L (98-107); Globulin 3.3 g/dL (2.4-3.5); Glucose 131 mg/dL (70-105); Potassium 3.8 mmol/L (3.5-5.1); Protein, Total 7.7 g/dL (6.0-8.3); Sodium 140 mmol/L (136-145)
[2021-09-12 16:13] LABS: Acetaminophen Less than 10.0 mcg/mL (10.0-30.0); Alcohol Less than 10 mg/dL (Less than 10); CK (CPK) 168 U/L (30-200); Salicylate Less than 8.0 mg/dL (15.0-30.0)
[2021-09-12 17:57] LABS: Bilirubin Negative (Negative); Blood, Urine Negative (Negative); Clarity Clear (Clear); Glucose, Urine (Dipstick) Normal (Negative); Ketone, Urine Trace mg/dL (Negative); Leukocyte Negative Leu/uL (Negative); Nitrite Negative (Negative); Protein, Urine (Dipstick) 10 mg/dL (Neg-Trace); Specific Gravity, Urine 1.034 (1.002-1.036); Urobilinogen Normal mg/dL (Less than 2); pH, Urine 5.5 (5.0-9.0)
[2021-09-12 18:05] LABS: Amphetamine Not Detected (NotDetected); Barbiturates Screen Not Detected (NotDetected); Benzodiazepine Screen Not Detected (NotDetected); Cocaine Metabolite Screen Detected (NotDetected); Methadone Not Detected (NotDetected); Methamphetamine Not Detected (NotDetected); Opiate Screen Not Detected (NotDetected); Oxycodone Screen Not Detected (NotDetected); Phencyclidine (PCP) Not Detected (NotDetected); THC/Cannabinoid Screen Not Detected (NotDetected); Tricyclic Screen Detected (NotDetected)
== END 2021-09-12 19:35 | disposition home or self-care (01) ==
LOC: ERS 15:02
DX: F20.9 Schizophrenia, unspecified (principal); F17.210 Nicotine dependence, cigarettes, uncomplicated
CPT/HCPCS: 36415; 80053; 80306; 80307; 81003; 82550; 84443; 85025; 93005

== ENCOUNTER 2021-12-16 18:08 | Emergency (ER) | payer MEDICARE, MEDICAID ==
[2021-12-16 18:41] LABS: Bilirubin Negative (Negative); Blood, Urine Negative (Negative); Clarity Clear (Clear); Glucose, Urine (Dipstick) Normal (Negative); Ketone, Urine Negative (Negative); Leukocyte Negative Leu/uL (Negative); Nitrite Negative (Negative); Protein, Urine (Dipstick) Negative (Neg-Trace); Specific Gravity, Urine 1.024 (1.002-1.036); Urobilinogen Normal mg/dL (Less than 2)
[2021-12-16 18:55] LABS: Amphetamine Not Detected (NotDetected); Barbiturates Screen Not Detected (NotDetected); Benzodiazepine Screen Not Detected (NotDetected); Cocaine Metabolite Screen Detected (NotDetected); Methadone Not Detected (NotDetected); Methamphetamine Not Detected (NotDetected); Opiate Screen Not Detected (NotDetected); Oxycodone Screen Not Detected (NotDetected); Phencyclidine (PCP) Not Detected (NotDetected); THC/Cannabinoid Screen Not Detected (NotDetected); Tricyclic Screen Detected (NotDetected)
[2021-12-16 18:58] LABS: #Basophils 0.1 thou/uL (0.0-0.2); #Eosinphils 0.1 thou/uL (0.0-0.7); #Lymphocytes 1.4 thou/uL (1.20-3.40); #Monocytes 0.5 thou/uL (0.11-0.59); #Neutrophils 5.3 thou/uL (1.40-6.50); %Basophils 1.2 % (0.0-1.0); %Eosinophils 1.7 % (0.0-10.0); %Lymphocytes 19.5 % (21.0-51.0); %Monocytes 6.2 % (0.0-10.0); %Neutrophils 71.5 % (42.0-75.0); Hemoglobin 14.4 g/dL (14.0-18.0); Mean Corpuscular HGB CONC 35.4 g/dL (32.0-36.0); Mean Corpuscular Hemoglobin 31.3 pg (27.0-31.0); Mean Corpuscular Volume 88.4 fL (78.0-98.0); Mean Platelet Volume 6.9 fL (7.4-10.4); Platelet Count 233 thou/uL (130-400); RBC Distribution Width 11.6 % (11.5-14.5); Red Blood Cell (RBC) Count 4.61 mill/uL (4.70-6.10); White Blood Cell (WBC) Count 7.4 thou/uL (4.8-10.8)
[2021-12-16 19:19] LABS: ALT (SGPT) 35 U/L (8-55); AST (SGOT) 27 U/L (5-34); Acetaminophen Less than 10.0 mcg/mL (10.0-30.0); Albumin 4.6 g/dL (3.5-5.0); Alcohol Less than 10 mg/dL (Less than 10); Alkaline Phosphatase 129 U/L (40-110); Anion Gap 14 mmol/L (10-20); BUN (Urea Nitrogen) 17 mg/dL (8.9-20.6); Bilirubin, Total 0.5 mg/dL (0.2-1.2); Calc. Creatinine Clearance 0 mL/min (70-130); Calcium 9.8 mg/dL (7.8-10.44); Carbon Dioxide 27 mmol/L (22-29); Chloride 104 mmol/L (98-107); Estimated GFR 114; Globulin 3.5 g/dL (2.4-3.5); Glucose 102 mg/dL (70-105); Potassium 3.7 mmol/L (3.5-5.1); Protein, Total 8.1 g/dL (6.0-8.3); Salicylate Less than 8.0 mg/dL (15.0-30.0); Sodium 141 mmol/L (136-145)
[2021-12-16 20:41] LABS: SARS-CoV-2 NAA Rapid Test Not Detected (NotDetected)
== END 2021-12-16 22:29 | disposition home or self-care (01) ==
LOC: ERS 18:08
DX: F14.10 Cocaine abuse, uncomplicated (principal); F17.210 Nicotine dependence, cigarettes, uncomplicated; Z79.899 Other long term (current) drug therapy; Z20.822 Contact with and (suspected) exposure to COVID-19
CPT/HCPCS: 80306; 80307; 81003; 93005; 99285; U0002; 36415; 80053; 84443; 85025

== ENCOUNTER 2023-03-11 19:03 | Emergency (ER) | payer MEDICARE, MEDICAID ==
[2023-03-11 19:40] LABS: #Eosinphils 0.2 thou/uL (0.0-0.7); #Monocytes 0.3 thou/uL (0.11-0.59); #Neutrophils 3.2 thou/uL (1.40-6.50); %Basophils 0.4 % (0.0-1.0); %Eosinophils 5.1 % (0.0-10.0); %Lymphocytes 20.6 % (21.0-51.0); %Monocytes 5.3 % (0.0-10.0); %Neutrophils 68.4 % (42.0-75.0); Hematocrit 40.7 % (42.0-52.0); Hemoglobin 14.4 g/dL (14.0-18.0); Mean Corpuscular HGB CONC 35.4 g/dL (32.0-36.0); Mean Corpuscular Hemoglobin 30.1 pg (27.0-31.0); Mean Corpuscular Volume 85.1 fl (78.0-98.0); Mean Platelet Volume 9.2 fL (7.4-10.4); Platelet Count 253 10x3/uL (130-400); RBC Distribution Width 11.6 % (11.5-14.5); Red Blood Cell (RBC) Count 4.78 mill/uL (4.70-6.10); White Blood Cell (WBC) Count 4.7 10x3/uL (4.8-10.8)
[2023-03-11 20:04] LABS: Calcium, Ionized (venous) 1.17 mmol/L (1.16-1.32); Chloride (VBG) 100 mmol/L (98-106); Hematocrit-VBG 45 % (42.0-52.0); Hemoglobin (Hb) 15.2 g/dL (13.2-17.3); Potassium (VBG) 3.86 mmol/L (3.70-5.30); Sodium 136 mmol/L (133-146); pH (venous) 7.349 (7.32-7.43)
[2023-03-11 20:09] LABS: ALT (SGPT) 13 U/L (8-55); AST (SGOT) 13 U/L (5-34); Albumin 4.5 g/dL (3.5-5.0); Alkaline Phosphatase 123 U/L (40-110); Anion Gap 14 mmol/L (10-20); BUN (Urea Nitrogen) 6 mg/dL (8.9-20.6); Bilirubin, Total 0.6 mg/dL (0.2-1.2); Calc. Creatinine Clearance 0 mL/min (70-130); Calcium 9.4 mg/dL (7.8-10.44); Carbon Dioxide 23 mmol/L (22-29); Chloride 100 mmol/L (98-107); Estimated GFR 120; Globulin 2.8 g/dL (2.4-3.5); Glucose 355 mg/dL (70-105); Potassium 3.8 mmol/L (3.5-5.1); Protein, Total 7.3 g/dL (6.0-8.3); Sodium 133 mmol/L (136-145)
[2023-03-11] MEDS ORDERED: Acetaminophen 325 MG TAB ONE (20:28)
== END 2023-03-11 20:32 | disposition home or self-care (01) ==
LOC: ERS 19:03
DX: E11.65 Type 2 diabetes mellitus with hyperglycemia (principal); F17.210 Nicotine dependence, cigarettes, uncomplicated
CPT/HCPCS: 36415; 80053; 82010; 82805; 83690; 85025; 93005

== ENCOUNTER 2023-04-15 09:24 | Emergency (ER) | payer MEDICARE, MEDICAID ==
[2023-04-15 09:48] LABS: #Eosinphils 0.3 thou/uL (0.0-0.7); #Monocytes 0.3 thou/uL (0.11-0.59); #Neutrophils 4.9 thou/uL (1.40-6.50); %Basophils 0.4 % (0.0-1.0); %Lymphocytes 17.3 % (21.0-51.0); %Monocytes 4.1 % (0.0-10.0); %Neutrophils 73.1 % (42.0-75.0); Hematocrit 45.3 % (42.0-52.0); Hemoglobin 15.6 g/dL (14.0-18.0); Mean Corpuscular HGB CONC 34.4 g/dL (32.0-36.0); Mean Corpuscular Hemoglobin 29.9 pg (27.0-31.0); Mean Corpuscular Volume 86.9 fl (78.0-98.0); Mean Platelet Volume 9.3 fL (7.4-10.4); Platelet Count 280 10x3/uL (130-400); RBC Distribution Width 11.4 % (11.5-14.5); Red Blood Cell (RBC) Count 5.21 mill/uL (4.70-6.10); White Blood Cell (WBC) Count 6.8 10x3/uL (4.8-10.8)
[2023-04-15 10:09] LABS: ALT (SGPT) 8 U/L (8-55); AST (SGOT) 11 U/L (5-34); Albumin 4.4 g/dL (3.5-5.0); Alkaline Phosphatase 110 U/L (40-110); Anion Gap 15 mmol/L (10-20); BUN (Urea Nitrogen) 18 mg/dL (8.9-20.6); Bilirubin, Total 0.9 mg/dL (0.2-1.2); Calc. Creatinine Clearance 0 mL/min (70-130); Calcium 9.6 mg/dL (7.8-10.44); Carbon Dioxide 27 mmol/L (22-29); Chloride 98 mmol/L (98-107); Estimated GFR 112; Globulin 3.2 g/dL (2.4-3.5); Glucose 285 mg/dL (70-105); Potassium 4.1 mmol/L (3.5-5.1); Protein, Total 7.6 g/dL (6.0-8.3); Sodium 136 mmol/L (136-145)
[2023-04-15 10:13] LABS: Acetaminophen Less than 10 mcg/mL (10.0-30.0); Alcohol Less than 10.0 mg/dL (Less than 10); Salicylate Less than 8.0 mg/dL (15.0-30.0)
[2023-04-15 10:22] LABS: Amphetamine Not Detected (NotDetected); Barbiturates Screen Not Detected (NotDetected); Benzodiazepine Screen Not Detected (NotDetected); Cocaine Metabolite Screen Detected (NotDetected); Methadone Not Detected (NotDetected); Methamphetamine Not Detected (NotDetected); Opiate Screen Not Detected (NotDetected); Oxycodone Screen Not Detected (NotDetected); Phencyclidine (PCP) Not Detected (NotDetected); THC/Cannabinoid Screen Not Detected (NotDetected); Tricyclic Screen Detected (NotDetected)
[2023-04-15 10:23] LABS: Bacteria/HPF None Seen HPF (None Seen); Bilirubin Negative (Negative); Blood, Urine Negative (Negative); CAUTI Indications for Culture Alt mental st,lethar; Clarity Clear (Clear); Glucose, Urine (Dipstick) Greater than 1000 mg/dL (Negative); Ketone, Urine 60 mg/dL (Negative); Leukocyte Negative Leu/uL (Negative); Nitrite Negative (Negative); Protein, Urine (Dipstick) Negative (Neg-Trace); RBC/HPF 0-3 HPF (0-3); Specific Gravity, Urine 1.025 (1.002-1.036); Squamous Epithelial None Seen HPF (0-3); Urobilinogen Normal mg/dL (Less than 2); WBC/HPF 0-3 HPF (0-3); pH, Urine 5.5 (5.0-9.0)
[2023-04-15 10:37] LABS: Urine Culture Reflex No No
[2023-04-15] MEDS ORDERED: Acetaminophen 500 MG TAB ONE (12:00)
== END 2023-04-15 13:18 | disposition home or self-care (01) ==
LOC: ERS 09:24
DX: R45.851 Suicidal ideations (principal); F20.9 Schizophrenia, unspecified; F31.9 Bipolar disorder, unspecified; F17.210 Nicotine dependence, cigarettes, uncomplicated; F41.9 Anxiety disorder, unspecified; E11.9 Type 2 diabetes mellitus without complications; Z79.84 Long term (current) use of oral hypoglycemic drugs; Z79.899 Other long term (current) drug therapy
CPT/HCPCS: 80053; 80306; 80307; 81001; 84443; 85025; 93005; 99285

== ENCOUNTER 2023-04-19 14:29 | Emergency (ER) | payer MEDICARE, MEDICAID ==
[2023-04-19 15:09] LABS: #Eosinphils 0.3 thou/uL (0.0-0.7); #Monocytes 0.3 thou/uL (0.11-0.59); #Neutrophils 4.2 thou/uL (1.40-6.50); %Basophils 0.3 % (0.0-1.0); %Eosinophils 4.5 % (0.0-10.0); %Lymphocytes 17.8 % (21.0-51.0); %Monocytes 4.7 % (0.0-10.0); %Neutrophils 72.5 % (42.0-75.0); Hematocrit 40.2 % (42.0-52.0); Hemoglobin 13.7 g/dL (14.0-18.0); Mean Corpuscular HGB CONC 34.1 g/dL (32.0-36.0); Mean Corpuscular Hemoglobin 29.7 pg (27.0-31.0); Mean Platelet Volume 9.5 fL (7.4-10.4); Platelet Count 247 10x3/uL (130-400); RBC Distribution Width 11.2 % (11.5-14.5); Red Blood Cell (RBC) Count 4.62 mill/uL (4.70-6.10); White Blood Cell (WBC) Count 5.8 10x3/uL (4.8-10.8)
[2023-04-19 15:38] LABS: Troponin I Less than 0.010 ng/mL (< 0.028)
[2023-04-19 15:48] LABS: ALT (SGPT) 7 U/L (8-55); AST (SGOT) 19 U/L (5-34); Albumin 4.1 g/dL (3.5-5.0); Alkaline Phosphatase 109 U/L (40-110); Anion Gap 16 mmol/L (10-20); BUN (Urea Nitrogen) 17 mg/dL (8.9-20.6); Bilirubin, Total 0.6 mg/dL (0.2-1.2); Calc. Creatinine Clearance 0 mL/min (70-130); Calcium 9.1 mg/dL (7.8-10.44); Carbon Dioxide 22 mmol/L (22-29); Chloride 103 mmol/L (98-107); Estimated GFR 105; Globulin 3.2 g/dL (2.4-3.5); Glucose 342 mg/dL (70-105); Lipase 44 U/L (8-78); Potassium 4.2 mmol/L (3.5-5.1); Protein, Total 7.3 g/dL (6.0-8.3); Sodium 137 mmol/L (136-145)
== END 2023-04-19 16:11 | disposition home or self-care (01) ==
LOC: ERS 14:29
DX: M79.632 Pain in left forearm (principal); R07.9 Chest pain, unspecified
CPT/HCPCS: 36415; 36416; 71045; 80053; 83690; 84484; 85025; 93005; 94760

== ENCOUNTER 2023-06-15 17:32 | Emergency (ER) | payer MEDICARE, MEDICAID ==
[2023-06-15 18:23] LABS: Phosphorus 2.8 mg/dL (2.3-4.7)
[2023-06-15 18:26] LABS: ALT (SGPT) 18 U/L (8-55); AST (SGOT) 14 U/L (5-34); Albumin 4.9 g/dL (3.5-5.0); Alkaline Phosphatase 145 U/L (40-110); Anion Gap 17 mmol/L (10-20); BUN (Urea Nitrogen) 17 mg/dL (8.9-20.6); Bilirubin, Total 0.9 mg/dL (0.2-1.2); Calc. Creatinine Clearance 0 mL/min (70-130); Calcium 10.2 mg/dL (7.8-10.44); Carbon Dioxide 24 mmol/L (22-29); Chloride 98 mmol/L (98-107); Estimated GFR 97; Globulin 3.8 g/dL (2.4-3.5); Glucose 377 mg/dL (70-105); Potassium 4.1 mmol/L (3.5-5.1); Protein, Total 8.7 g/dL (6.0-8.3); Sodium 135 mmol/L (136-145)
[2023-06-15 18:30] LABS: Troponin I Less than 0.010 ng/mL (< 0.028)
[2023-06-15 18:37] LABS: Bacteria/HPF None Seen HPF (None Seen); Bilirubin Negative (Negative); Blood, Urine Negative (Negative); CAUTI Indications for Culture Pelvic or flank pain; Clarity Clear (Clear); Glucose, Urine (Dipstick) Greater than 1000 mg/dL (Negative); Ketone, Urine 20 mg/dL (Negative); Leukocyte Negative Leu/uL (Negative); Nitrite Negative (Negative); Protein, Urine (Dipstick) Negative (Neg-Trace); RBC/HPF None Seen HPF (0-3); Specific Gravity, Urine 1.041 (1.002-1.036); Squamous Epithelial None Seen HPF (0-3); Urobilinogen Normal mg/dL (Less than 2); WBC/HPF 0-3 HPF (0-3); pH, Urine 5.5 (5.0-9.0)
[2023-06-15 18:38] LABS: Urine Culture Reflex No No
== END 2023-06-15 19:05 | disposition home or self-care (01) ==
LOC: ERS 17:32
DX: E11.65 Type 2 diabetes mellitus with hyperglycemia (principal); F17.210 Nicotine dependence, cigarettes, uncomplicated; Z79.84 Long term (current) use of oral hypoglycemic drugs
CPT/HCPCS: 36415; 36416; 80053; 81001; 82010; 83735; 84100; 84484; 93005

== ENCOUNTER 2024-03-31 03:19 | Emergency (ER) | payer MEDICARE, MEDICAID ==
[2024-03-31 04:54] LABS: Bacteria/HPF None Seen HPF (None Seen); Bilirubin Negative (Negative); Blood, Urine Negative (Negative); CAUTI Indications for Culture Alt mental st,lethar; Clarity Clear (Clear); Glucose, Urine (Dipstick) Normal (Negative); Ketone, Urine Negative (Negative); Leukocyte Negative Leu/uL (Negative); Nitrite Negative (Negative); Protein, Urine (Dipstick) 20 mg/dL (Neg-Trace); RBC/HPF None Seen HPF (0-3); Specific Gravity, Urine 1.026 (1.002-1.036); Squamous Epithelial 0-3 HPF (0-3); Urine Culture Reflex No No
[2024-03-31 05:01] LABS: Amphetamine Not Detected (NotDetected); Barbiturates Screen Not Detected (NotDetected); Benzodiazepine Screen Not Detected (NotDetected); Cocaine Metabolite Screen Detected (NotDetected); Methadone Not Detected (NotDetected); Methamphetamine Not Detected (NotDetected); Opiate Screen Not Detected (NotDetected); Oxycodone Screen Not Detected (NotDetected); Phencyclidine (PCP) Not Detected (NotDetected); THC/Cannabinoid Screen Not Detected (NotDetected); Tricyclic Screen Not Detected (NotDetected)
[2024-03-31 05:21] LABS: #Basophils 0.05 10x3/uL (0.0-0.2); %Basophils 0.7 % (0.0-1.0); %Eosinophils 1.9 % (0.0-10.0); %Lymphocytes 27.8 % (21.0-51.0); %Monocytes 5.7 % (0.0-10.0); %Neutrophils 63.6 % (42.0-75.0); Hematocrit 43.6 % (42.0-52.0); Hemoglobin 15.3 g/dL (14.0-18.0); Mean Corpuscular HGB CONC 35.1 g/dL (32.0-36.0); Mean Corpuscular Hemoglobin 28.8 pg (27.0-31.0); Mean Corpuscular Volume 82.1 fL (78.0-98.0); Mean Platelet Volume 8.9 fL (7.4-10.4); Platelet Count 334 10x3/uL (130-400); RBC Distribution Width 11.5 % (11.5-14.5); Red Blood Cell (RBC) Count 5.31 mill/uL (4.70-6.10)
[2024-03-31 05:42] LABS: Acetaminophen Less than 10 mcg/mL (Less than 10); Alcohol Less than 10.0 mg/dL (Less than 10); Salicylate Less than 8.0 mg/dL (Less than 8.0)
[2024-03-31 05:43] LABS: ALT (SGPT) 11 U/L (8-55); AST (SGOT) 15 U/L (5-34); Albumin 5.1 g/dL (3.5-5.0); Alkaline Phosphatase 99 U/L (40-110); Anion Gap 17 mmol/L (10-20); BUN (Urea Nitrogen) 18 mg/dL (8.9-20.6); Bilirubin, Total 1.2 mg/dL (0.2-1.2); Calc. Creatinine Clearance 0 mL/min (70-130); Calcium 10.4 mg/dL (7.8-10.44); Carbon Dioxide 25 mmol/L (22-29); Chloride 102 mmol/L (98-107); Estimated GFR 118; Glucose 119 mg/dL (70-105); Potassium 3.9 mmol/L (3.5-5.1); Protein, Total 9.1 g/dL (6.0-8.3); Sodium 140 mmol/L (136-145)
== END 2024-03-31 13:25 ==
LOC: ERS 03:19
DX: R45.850 Homicidal ideations (principal); E11.9 Type 2 diabetes mellitus without complications; F17.210 Nicotine dependence, cigarettes, uncomplicated
CPT/HCPCS: 80053; 80306; 80307; 81001; 85025; 93005

== ENCOUNTER → 2024-04-13 | Emergency (ER) | payer MEDICARE, MEDICAID | LOC: ERS 11:07 | DX: Z53.21 Procedure and treatment not carried out due to patient leaving prior to being seen by health care provider (principal) ==

== ENCOUNTER 2024-04-14 12:04 | Emergency (ER) | payer MEDICARE, MEDICAID ==
[2024-04-14 13:15] LABS: Bacteria/HPF None Seen HPF (None Seen); Bilirubin Negative (Negative); Blood, Urine Negative (Negative); CAUTI Indications for Culture Dysuria,urgency,freq; Clarity Clear (Clear); Glucose, Urine (Dipstick) 70 mg/dL (Negative); Ketone, Urine Negative (Negative); Leukocyte Negative Leu/uL (Negative); Nitrite Negative (Negative); Protein, Urine (Dipstick) Negative (Neg-Trace); RBC/HPF None Seen HPF (0-3); Specific Gravity, Urine 1.015 (1.002-1.036); Squamous Epithelial None Seen HPF (0-3); Urobilinogen Normal mg/dL (Less than 2); WBC/HPF 0-3 HPF (0-3); pH, Urine 6.5 (5.0-9.0)
[2024-04-14 13:17] LABS: Urine Culture Reflex No No
[2024-04-14 13:21] LABS: Amphetamine Not Detected (NotDetected); Barbiturates Screen Not Detected (NotDetected); Benzodiazepine Screen Not Detected (NotDetected); Cocaine Metabolite Screen Detected (NotDetected); Methadone Not Detected (NotDetected); Methamphetamine Not Detected (NotDetected); Opiate Screen Not Detected (NotDetected); Oxycodone Screen Not Detected (NotDetected); Phencyclidine (PCP) Not Detected (NotDetected); THC/Cannabinoid Screen Not Detected (NotDetected); Tricyclic Screen Not Detected (NotDetected)
[2024-04-14 13:28] LABS: #Basophils Less than 0.03 10x3/uL (0.0-0.2); %Basophils 0.3 % (0.0-1.0); %Eosinophils 2.4 % (0.0-10.0); %Lymphocytes 21.8 % (21.0-51.0); %Monocytes 4.7 % (0.0-10.0); %Neutrophils 70.6 % (42.0-75.0); Hematocrit 37.4 % (42.0-52.0); Hemoglobin 12.8 g/dL (14.0-18.0); Mean Corpuscular HGB CONC 34.2 g/dL (32.0-36.0); Mean Corpuscular Hemoglobin 28.9 pg (27.0-31.0); Mean Corpuscular Volume 84.4 fL (78.0-98.0); Mean Platelet Volume 8.9 fL (7.4-10.4); Platelet Count 335 10x3/uL (130-400); RBC Distribution Width 11.7 % (11.5-14.5); Red Blood Cell (RBC) Count 4.43 mill/uL (4.70-6.10)
[2024-04-14 13:43] LABS: Acetaminophen Less than 10 mcg/mL (Less than 10); Alcohol Less than 10.0 mg/dL (Less than 10); Salicylate Less than 8.0 mg/dL (Less than 8.0)
[2024-04-14 13:44] LABS: ALT (SGPT) 14 U/L (8-55); AST (SGOT) 15 U/L (5-34); Albumin 4.1 g/dL (3.5-5.0); Alkaline Phosphatase 97 U/L (40-110); Anion Gap 16 mmol/L (10-20); BUN (Urea Nitrogen) 15 mg/dL (8.9-20.6); Bilirubin, Total 0.4 mg/dL (0.2-1.2); Calc. Creatinine Clearance 0 mL/min (70-130); Calcium 9.7 mg/dL (7.8-10.44); Carbon Dioxide 25 mmol/L (22-29); Chloride 100 mmol/L (98-107); Estimated GFR 115; Globulin 3.8 g/dL (2.4-3.5); Glucose 179 mg/dL (70-105); Potassium 3.8 mmol/L (3.5-5.1); Protein, Total 7.9 g/dL (6.0-8.3); Sodium 137 mmol/L (136-145)
[2024-04-14] MEDS ORDERED: Ibuprofen 800 MG TAB ONE (17:44)
== END 2024-04-14 18:15 | disposition home or self-care (01) ==
LOC: ERS 12:04
DX: F41.9 Anxiety disorder, unspecified (principal); F17.210 Nicotine dependence, cigarettes, uncomplicated; F17.290 Nicotine dependence, other tobacco product, uncomplicated; Z55.6 Problems related to health literacy
CPT/HCPCS: 80053; 80306; 80307; 81001; 84443; 85025; 93005; 99283

== ENCOUNTER → 2024-05-10 | Emergency (ER) | payer MEDICARE, OTHER ==
[2024-05-10 06:30] LABS: #Basophils Less than 0.03 10x3/uL (0.0-0.2); %Basophils 0.3 % (0.0-1.0); %Eosinophils 1.9 % (0.0-10.0); %Lymphocytes 27.6 % (21.0-51.0); %Monocytes 4.9 % (0.0-10.0); Hematocrit 40.8 % (42.0-52.0); Hemoglobin 14.1 g/dL (14.0-18.0); Mean Corpuscular HGB CONC 34.6 g/dL (32.0-36.0); Mean Corpuscular Hemoglobin 29.1 pg (27.0-31.0); Mean Corpuscular Volume 84.1 fL (78.0-98.0); Mean Platelet Volume 8.7 fL (7.4-10.4); Platelet Count 273 10x3/uL (130-400); RBC Distribution Width 11.9 % (11.5-14.5); Red Blood Cell (RBC) Count 4.85 mill/uL (4.70-6.10)
[2024-05-10 06:42] LABS: Lipase 235 U/L (8-78)
[2024-05-10 06:45] LABS: Acetaminophen Less than 10 mcg/mL (Less than 10); Alcohol Less than 10.0 mg/dL (Less than 10); Salicylate Less than 8.0 mg/dL (Less than 8.0)
[2024-05-10 06:46] LABS: ALT (SGPT) 13 U/L (8-55); AST (SGOT) 16 U/L (5-34); Albumin 4.4 g/dL (3.5-5.0); Alkaline Phosphatase 111 U/L (40-110); Anion Gap 15 mmol/L (10-20); BUN (Urea Nitrogen) 21 mg/dL (8.9-20.6); Bilirubin, Total 0.6 mg/dL (0.2-1.2); Calc. Creatinine Clearance 0 mL/min (70-130); Calcium 9.8 mg/dL (7.8-10.44); Carbon Dioxide 27 mmol/L (22-29); Chloride 100 mmol/L (98-107); Estimated GFR 119; Globulin 3.9 g/dL (2.4-3.5); Glucose 125 mg/dL (70-105); Potassium 3.9 mmol/L (3.5-5.1); Protein, Total 8.3 g/dL (6.0-8.3); Sodium 138 mmol/L (136-145)
== END ==
LOC: ERS 05:05
DX: R41.0 Disorientation, unspecified (principal); F17.210 Nicotine dependence, cigarettes, uncomplicated; E11.9 Type 2 diabetes mellitus without complications; Z53.29 Procedure and treatment not carried out because of patient's decision for other reasons
CPT/HCPCS: 36415; 80053; 80307; 83690; 85025; 99285